=== PATIENT | female | born 1945 | race Caucasian/White ===

== ENCOUNTER 2016-08-22 08:54 | Day surgery (SDC) | payer OTHER ==
[2016-08-17 09:26] VITALS: BMI 26.8
[2016-08-22] MEDS ORDERED: FLURBIPROFEN 0.03% OPHTH SOLN 2.5 ML BOTTLE ONE (09:26)
[2016-08-22] MEDS ORDERED: TROPICAMIDE 1% OPHTH SOLN 15 ML BOTTLE ONE (09:26)
[2016-08-22] MEDS ORDERED: CYCLOPENTOLATE HCL 1% OPHTH SOLN 2 ML BOTTLE ONE (09:26)
[2016-08-22] MEDS ORDERED: GENTAMICIN SULFATE 0.3% OPHTHALMIC (EYE DROPS) 5ML BOTTLE ONE (09:26)
[2016-08-22] MEDS ORDERED: PHENYLEPHRINE 2.5% OPHTH SOLN 15 ML BOTTLE ONE (09:26)
[2016-08-22] MEDS: FLURBIPROFEN 0.03% OPHTH SOLN 2.5 ML BOTTLE OS SCH ×5 (09:45→10:05)
[2016-08-22] MEDS: PHENYLEPHRINE 2.5% OPHTH SOLN 15 ML BOTTLE OS SCH ×5 (09:45→10:05)
[2016-08-22] MEDS: TROPICAMIDE 1% OPHTH SOLN 15 ML BOTTLE OS SCH ×5 (09:45→10:05)
[2016-08-22] MEDS: CYCLOPENTOLATE HCL 1% OPHTH SOLN 2 ML BOTTLE OS SCH ×5 (09:45→10:05)
[2016-08-22] MEDS: GENTAMICIN SULFATE 0.3% OPHTHALMIC (EYE DROPS) 5ML BOTTLE OS SCH ×5 (09:45→10:05)
[2016-08-22] MEDS ORDERED: ACETAMINOPHEN 325 MG TABLET (FP) PO PRN (10:34)
[2016-08-22] MEDS ORDERED: PROPOFOL 20 ML ONE (10:46)
[2016-08-22] MEDS ORDERED: MIDAZOLAM HCL 2 MG/2 ML SINGLE DOSE VIAL ONE (10:59)
[2016-08-22 12:01] VITALS: TEMP 98.1
[2016-08-22 12:44] VITALS: BP 125/54; PULSE 58
--- NOTE | 2016-08-23 15:05 | OP ---
DATE OF OPERATION: 08/22/2016 TITLE OF PROCEDURE: Planned extracapsular cataract extraction with phacoemulsification, insertion of posterior chamber lens implant, left eye. Difficult cataract extraction due to hypermature nucleus and constricting pupil. SURGEON: Andrew Crum MD STEREO MAP PLOTTER OPERATOR SURGEON: Andrew Crum MD ANESTHESIA: Local standby. ANESTHESIOLOGIST: Dr. Katz. COMPLICATIONS: None. PREOPERATIVE DIAGNOSES: Cataract left eye, mature and pupillary miosis left eye. POSTOPERATIVE DIAGNOSES: Cataract left eye, mature and pupillary miosis left eye. FINDINGS AT PROCEDURE: After successful harish-globe anesthesia was given in the OR, the patient was prepped and draped in the usual manner exposing the left eye. A lid speculum was inserted as were the Tegaderm strips. The microscope was positioned over the left eye. A superior fornix-based flap was then fashioned for 12 mm using the Zainab scissors and 0.12 forceps. Hemostasis was achieved with electrocautery. A limbal groove was then fashioned for 3 mm with the crescent blade dissecting anteriorly to clear cornea and then 3-mm blade was used to enter the anterior chamber. Then under Viscoat a 360-degree anterior capsulotomy was performed and the leaflet removed from the eye. It was noted that the pupil began to constrict down and therefore when phacoemulsification was done in a bimanual technique it took longer than usual due to the necessary use of Viscoat to undermine and to loosen the nucleus for the underlying epinucleus. The phacoemulsification was done successfully followed by irrigation and aspiration of all cortical material again with a constricted pupil which made it difficult. This was followed by Provisc injection in the posterior chamber then deep into the posterior capsule. The implant was inspected carefully with the microscope to be free of flaws. It was folded and placed in the Provisc filled cartridge. The cartridge was placed into the injector and the implant was injected into the eye such that the inferior haptic was in the inferior capsular bag and the super haptic in the superior capsular bag and then rotated into a horizontal position with a Sinskey hook. Provisc was aspirated out and replaced with Miochol ,miostat and BSS. The wound was closed with a single interrupted 10-0 Nylon suture and tested for leakage and none was found. Conjunctival tenon flaps were reapproximated. At this point implant was fixated in the capsular bag, centrally located with a round pupil, intact posterior capsule, and a red reflex present. Topical Betoptic S and Maxitrol ophthalmic suspensions were placed as was bacitracin/polymyxin B ophthalmic ointment. Then the Tegaderm strips and lid speculum were removed from the lids. The lids were closed and a patch and shield placed on the eye. The patient was then discharge from the operating room to Recovery Room in good condition having tolerated the procedure well. Luna [id number] MTDD
== END 2016-08-22 12:45 | disposition home or self-care (01) ==
LOC: FASU 08:54
PROVIDERS: ATTEND Ophthalmology
PROC: 08RK3JZ Replacement of Left Lens with Synthetic Substitute, Percutaneous Approach (ICD-10-PCS; principal; 2016-08-22 11:02)
DX: H26.8 Other specified cataract (principal); H57.03 Miosis

== ENCOUNTER 2018-07-02 10:01 | Day surgery (SDC) | payer OTHER ==
[2018-06-24 12:46] VITALS: BMI 25.6
[2018-07-02] MEDS ORDERED: ACETAMINOPHEN 325 MG TABLET (FP) PO PRN (11:05)
[2018-07-02] MEDS: KETOROLAC TROMETHAMINE 0.5% EYE DROP 1 DROP DROPS ONE ×4 (12:50→13:05)
[2018-07-02] MEDS: TROPICAMIDE 1% OPHTH SOLN 15 ML BOTTLE ONE ×4 (12:50→13:05)
[2018-07-02] MEDS: PHENYLEPHRINE 2.5% OPHTH SOLN 15 ML BOTTLE ONE ×4 (12:50→13:05)
[2018-07-02] MEDS: OFLOXACIN 0.3% OPHTHALMIC SOLUTION 5 ML BOTTLE OD SCH ×4 (12:50→13:05)
[2018-07-02] MEDS: CYCLOPENTOLATE HCL 1% OPHTH SOLN 2 ML BOTTLE ONE ×4 (12:50→13:05)
[2018-07-02] MEDS ORDERED: LIDOCAINE HCL/PF 2% SDV 5ML VIAL ONE (14:02)
[2018-07-02] MEDS ORDERED: BUPIVACAINE HCL/PF 0.5% (5MG/ML) 10 ML VIAL ONE (14:02)
[2018-07-02] MEDS ORDERED: LIDOCAINE HCL 2% JELLY 10 ML CARTRIDGE ONE (14:02)
[2018-07-02] MEDS ORDERED: EPI-SHUGARCAINE (EPINEPHRINE 0.025% & LIDOCAINE-PF 0.75%) 4ML ONE (14:02)
[2018-07-02] MEDS ORDERED: ACETYLCHOLINE 1:100 INTRA-OCUL 20 MG/2 ML KIT ONE (14:03)
[2018-07-02] MEDS ORDERED: MIDAZOLAM HCL 2 MG/2 ML SINGLE DOSE VIAL ONE (14:27)
[2018-07-02] MEDS ORDERED: PROPOFOL 20 ML ONE (14:29)
[2018-07-02] MEDS ORDERED: PHENYLEPHRINE 2.5% OD SCH (15:00)
[2018-07-02] MEDS ORDERED: KETOROLAC TROMETHAMINE 0.5% EYE DROP 1 DROP DROPS OD SCH (15:00)
[2018-07-02] MEDS ORDERED: CYCLOPENTOLATE HCL 1% OPHTH SOLN 2 ML BOTTLE OD SCH (15:00)
[2018-07-02] MEDS ORDERED: TROPICAMIDE 1% OPHTH SOLN 15 ML BOTTLE OD SCH (15:00)
[2018-07-02 15:49] VITALS: TEMP 98.2
[2018-07-02 16:32] VITALS: BP 116/66; PULSE 56
--- NOTE | 2018-07-02 18:35 | OP ---
DATE OF OPERATION: 07/02/2018 PROCEDURE: Planned extracapsular cataract extraction, phacoemulsification, insertion of posterior chamber lens implant of the right eye. SURGEON: Andrew Bangura MD. 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 ANESTHESIA: Local with standby. ANESTHESIOLOGIST: Solo Yanes MD COMPLICATIONS: None. PREOPERATIVE DIAGNOSIS: Mature cataract, right eye. POSTOPERATIVE DIAGNOSIS: Mature cataract, right eye. FINDINGS AND PROCEDURE: After successful peribulbar anesthesia was given in the operating room, the patient was prepped and draped in the usual manner to expose the right eye. The lid speculum was inserted after Tegaderm strips were placed on the lashes, and an operating room microscope was positioned over the right eye. A superior fornix-based flap was then fashioned for 3 mm using Zainab scissors and 0.12 forceps and hemostasis with wet-field cautery. A limbal groove was fashioned for 3 mm with a crescent blade and dissected anterior into clear cornea. Then a 3-mm blade was used to enter the anterior chamber. Then under Viscoat, 360-degree anterior capsulotomy was performed and a leaflet removed from the eye. Phacoemulsification was then done of the entire nucleus, nuclear sclerosis about 3+ to 4+ in the anterior chamber after it had been prolapsed there, and without complication, followed by irrigation and aspiration of all cortical material in the entire posterior capsule and a red reflex present. ProVisc was injected in the posterior chamber to deepen the posterior capsule. At this point, red reflex was present. Then the attention was focused on the implant, which was inspected carefully and found to be free of defects, debris, and flaws. It was folded, placed in the ProVisc-filled cartridge, the cartridge placed in the injector, and the implant was injected into the posterior chamber, into the posterior capsule without complication and rotated in the horizontal position with a Sinskey hook, and the superior haptic was in the superior capsular bag and inferior haptic in the inferior capsular bag. The ProVisc was aspirated out, replaced with Miochol and Miostat and BSS, and the wound was closed with a single interrupted 10-0 Ethilon suture and tested for leakage and none was found. Conjunctival tenon flap was reapproximated. At this point the implant was fixated in the capsular bag, centrally located with a round pupil, intact posterior capsule, and a red reflex present. Topical Betoptic S and Maxitrol ophthalmic suspension were placed, as was polymyxin B and bacitracin ophthalmic ointment. The Tegaderm strips were removed from the lids, as well as the speculum was removed also, and the lids were closed and a patch and shield placed on the eye and the patient was then discharged from the operating room to the recovery area in good condition, having tolerated the procedure well. ANDREW BANGURA M.D. [id number]
== END 2018-07-02 16:15 | disposition home or self-care (01) ==
LOC: FASU 10:01
PROVIDERS: ATTEND Ophthalmology
PROC: 08RJ3JZ Replacement of Right Lens with Synthetic Substitute, Percutaneous Approach (ICD-10-PCS; principal; 2018-07-02 14:44)
DX: H25.89 Other age-related cataract (principal)